=== PATIENT | male | born 1950 | race Caucasian/White ===

== ENCOUNTER 2017-11-06 16:04 | Emergency (ER) | payer OTHER ==
[2017-11-06] MEDS ORDERED: cloNIDine 0.1 MG Tab PO ONE ×2 (17:08→18:27)
--- NOTE | 2017-11-06 17:09 | EDM.PDOC ---
ED HPI GENERAL MEDICAL PROBLEM - General Stated Complaint: BP HIGH Time Seen by Provider: 11/06/17 16:04 Source of Information: Reports: Patient History Limitations: Reports: No Limitations - History of Present Illness INITIAL COMMENTS - FREE TEXT/NARRATIVE: 66 y.o.w.m with a H/O kidney CA 25 years ago, came to the Clinic because his left ear was ringing. His BP was 220/120 and he was sent to the ed because "does not treat HTN". No N/V/D or dizziness but left ear is ringing. No H/A or any other acute medical issue. BP 199/112 Temp (?,please check nursing note) Pulse 74 RR 18 Pulse ox 97% on RA. Onset: Today Onset Date: 11/06/17 Onset Time: 09:00 Duration: Hour(s):, Intermittent Location: Reports: Generalized Quality: Reports: Other (left ear ringing) Severity: Mild Improves with: Reports: Medication Context: Reports: Other (HTN) Associated Symptoms: Reports: No Other Symptoms - Related Data Allergies Allergy/AdvReac Type Severity Reaction Status Date / Time Opiates Allergy Difficulty Uncoded 11/06/17 16:52 Breathing Home Meds: Home Meds Allopurinol [Zyloprim] 1 tab PO DAILY 11/06/17 [History] ClonazePAM [KlonoPIN] 1 - 2 tab PO DAILY 11/06/17 [History] Metoprolol Succinate [Toprol XL 50mg] 50 mg PO DAILY 11/06/17 [History] ED ROS GENERAL - Review of Systems Review Of Systems: See Below Constitutional: Reports: No Symptoms HEENT: Reports: No Symptoms Respiratory: Reports: No Symptoms Cardiovascular: Reports: No Symptoms Endocrine: Reports: No Symptoms GI/Abdominal: Reports: No Symptoms : Reports: No Symptoms Musculoskeletal: Reports: No Symptoms Skin: Reports: No Symptoms Neurological: Reports: No Symptoms Psychiatric: Reports: No Symptoms Hematologic/Lymphatic: Reports: No Symptoms Immunologic: Reports: No Symptoms ED EXAM, GENERAL - Physical Exam Exam: See Below Exam Limited By: No Limitations General Appearance: Alert, WD/WN, No Apparent Distress, Obese Eye Exam: Bilateral Eye: Normal Inspection Ears: Normal External Exam Ear Exam: Bilateral Ear: Auricle Normal Nose: Normal Inspection Throat/Mouth: Normal Inspection Head: Atraumatic, Normocephalic Neck: Normal Inspection, Supple, Non-Tender, Full Range of Motion Respiratory/Chest: No Respiratory Distress, Lungs Clear, Normal Breath Sounds, No Accessory Muscle Use Cardiovascular: Normal Peripheral Pulses, Regular Rate, Rhythm, No Edema, No Gallop, No JVD, No Murmur Peripheral Pulses: 1+: Radial (R) GI/Abdominal: Normal Bowel Sounds, Soft (Male) Exam: Deferred Rectal (Males) Exam: Deferred Back Exam: Normal Inspection, Full Range of Motion Extremities: Normal Inspection, Normal Range of Motion, Non-Tender Neurological: Alert, Oriented Psychiatric: Normal Affect, Normal Mood Skin Exam: Warm, Dry, Intact, Normal Color, No Rash Lymphatic: No Adenopathy Course - Vital Signs Text/Narrative:: 66 y.o.w.m with a H/O kidney CA 25 years ago, came to the Clinic because his left ear was ringing. His BP was 220/120 and he was sent to the ed because "does not treat HTN". No N/V/D or dizziness but left ear is ringing. No H/A or any other acute medical issue. BP 199/112 Temp 36.4, Pulse 74 RR 18 Pulse ox 97 % on RA. PE: WNWD W NM NAD, Ears clear, neck supple, no bruise Labs: Pending Impression: HTN urgency Tx: Clonidine 0.1 mg po X 2 Reexam: SBP improved from 220 to 192 after the first Clonidine 7.00 pm: Pt was signed out to Dr. Tomlin due to shift changes. Last Recorded V/S: Last Vital Signs Temp 36.4 C 11/06/17 16:20 Pulse 69 11/06/17 19:37 Resp 18 11/06/17 19:37 BP 177/90 H 11/06/17 19:37 Pulse Ox 99 11/06/17 19:37 - Orders/Labs/Meds Labs: Laboratory Tests 11/06/17 11/06/17 Range/Units 19:15 19:15 Sodium 138 (135-145) mmol/L Potassium 4.8 (3.5-5.3) mmol/L Chloride 106 (100-110) mmol/L Carbon Dioxide 25 (21-32) mmol/L BUN 31 H (7-18) mg/dL Creatinine 1.5 H (0.70-1.30) mg/dL Est Cr Clr Drug Dosing 52.99 mL/min Estimated GFR (MDRD) 47 L (>60) BUN/Creatinine Ratio 20.7 H (9-20) Glucose 105 (80-116) mg/dL Calcium 8.6 (8.6-10.2) mg/dL Troponin I 0.020 (<0.017-0.056) ng/mL TSH, Ultra Sensitive 7.05 H* (0.36-3.74) IU/mL Meds: Medications Discontinued Medications Generic Name Dose Route Start Last Admin Trade Name Tegan PRN Reason Stop Dose Admin Clonidine HCl 0.1 mg 11/06/17 17:08 11/06/17 17:18 Catapres PO 11/06/17 17:09 0.1 mg ONETIME ONE Administration Clonidine HCl 0.1 mg 11/06/17 18:27 11/06/17 18:33 Catapres PO 11/06/17 18:28 0.1 mg ONETIME ONE Administration Departure - Departure Time of Disposition: 09:00 Disposition: Home, Self-Care 01 Condition: Good Clinical Impression: Hypertension Qualifiers: Hypertension type: essential hypertension Qualified Code(s): I10 - Essential ( primary) hypertension - Discharge Information Instructions: Hypertension, [id number] Referrals: Eliezer Bergman MD [Primary Care Provider] - Forms: ED Department Discharge Additional Instructions: take 2 tabs of metoprolol once a day. check with primary care doctor
[2017-11-06 19:38] VITALS: BP 177/90
--- NOTE | 2017-11-07 03:38 | ER ---
DATE SEEN: 11/06/2017 REASON FOR VISIT: Hypertension. HISTORY OF PRESENT ILLNESS: This is a 66-year-old male whom I took over from Dr. Alcaraz. He was brought in because of tinnitus and pain on the left ear and was found to have blood pressures of over 200 systolic. He complains of no chest pain or shortness of breath, neither does he have any headaches. His symptoms include fatigue, daytime somnolence, upper respiratory symptoms, and dry mouth over the last 3 months. PAST MEDICAL HISTORY: Chronic abdominal pain, hypertension, and gout. ALLERGIES: Opiates. SOCIAL HISTORY: He does not smoke or drink in excess. PHYSICAL EXAMINATION: VITAL SIGNS: His latest blood pressure is 177/90 and pulse is 69. He has normal oxygenation. EARS, NOSE, AND THROAT: Negative. NECK: Supple. CHEST: Clear. CARDIOVASCULAR: Normal. RESPIRATORY: Normal. NEUROLOGIC: Normal. IMPRESSION: 1. Uncontrolled hypertension. 2. Obesity. 3. Possible obstructive sleep apnea. PLAN: I advised the patient to increase his dose of metoprolol to 100 mg [address] Bergman to have an ear, nose, and throat specialty referral to check tinnitus. The most common cause is hearing loss and presbycusis. I also discussed obstructive sleep apnea and the possibility of causing hypertension and other medical problems. TIME SEEN: 2000 hours. /[id number] EDA/MUNA
== END 2017-11-06 20:22 | disposition home or self-care (01) ==
LOC: FB.ED 16:04
DX: I10 Essential (primary) hypertension (principal); E66.9 Obesity, unspecified
CPT/HCPCS: 36415; 80048; 84443; 84484; 93005; 99284; A9270

== ENCOUNTER 2023-01-12 06:54 | Day surgery (SDC) | payer MEDICARE, BC ==
[~2023-01-12 06:54] MED LIST: Lactated Ringers 1,000 ML IV PRN; Sodium Chloride 0.9% 10 ML Syringe FLUSH PRN
[2023-01-12] MEDS ORDERED: Midazolam 1 MG/ML 2 ML SDV IV ONE (06:55)
[2023-01-12] MEDS ORDERED: Sodium Chloride 0.9% 10 ML Syringe IV ONE (06:55)
[2023-01-12] MEDS ORDERED: fentaNYL 100 MCG/2 ML SDV IV ONE (06:55)
[2023-01-12] MEDS ORDERED: acetaZOLAMIDE 500 MG Cap.ER PO ONE (09:00)
[2023-01-12 09:34] VITALS: PULSE 62
[2023-01-12 09:35] VITALS: BP 131/82
== END 2023-01-12 09:30 | disposition home or self-care (01) ==
LOC: FB.SDS 06:54
PROVIDERS: ATTEND Ophthalmology
DX: H25.811 Combined forms of age-related cataract, right eye (principal); H25.12 Age-related nuclear cataract, left eye; H02.831 Dermatochalasis of right upper eyelid; H02.834 Dermatochalasis of left upper eyelid; I25.10 Atherosclerotic heart disease of native coronary artery without angina pectoris; I12.9 Hypertensive chronic kidney disease with stage 1 through stage 4 chronic kidney disease, or unspecified chronic kidney disease; N18.32 Chronic kidney disease, stage 3b; F41.1 Generalized anxiety disorder; E03.9 Hypothyroidism, unspecified; R09.81 Nasal congestion; D23.5 Other benign neoplasm of skin of trunk; Z79.890 Hormone replacement therapy; Z79.899 Other long term (current) drug therapy; Z88.2 Allergy status to sulfonamides; Z88.5 Allergy status to narcotic agent; Z88.8 Allergy status to other drugs, medicaments and biological substances; Z87.891 Personal history of nicotine dependence; Z95.5 Presence of coronary angioplasty implant and graft
CPT/HCPCS: 00142; A9270-GY; J2250; J3010; J3490; V2632

== ENCOUNTER 2023-02-09 10:54 | Day surgery (SDC) | payer MEDICARE, BC ==
[2023-02-09] MEDS ORDERED: Sodium Chloride 0.9% 10 ML Syringe IV ONE (10:55)
[2023-02-09] MEDS ORDERED: Midazolam 1 MG/ML 2 ML SDV IV ONE (10:55)
[2023-02-09] MEDS ORDERED: fentaNYL 100 MCG/2 ML SDV IV ONE (10:55)
[2023-02-09] MEDS ORDERED: Sodium Chloride 0.9% 10 ML Syringe FLUSH PRN (11:00)
[2023-02-09] MEDS ORDERED: Lactated Ringers 1,000 ML IV PRN (11:00)
[2023-02-09] MEDS ORDERED: acetaZOLAMIDE 500 MG Cap.ER PO ONE (13:00)
[2023-02-09 15:42] VITALS: PULSE 60
[2023-02-09 15:43] VITALS: BP 121/79
== END 2023-02-09 13:20 | disposition home or self-care (01) ==
LOC: FB.SDS 10:54
PROVIDERS: ATTEND Ophthalmology
DX: H26.9 Unspecified cataract (principal)
CPT/HCPCS: 00142; A9270-GY; J2250; J3010; J3490; V2632